=== PATIENT | female | born 1980 | race Caucasian/White ===

== ENCOUNTER 2018-01-09 07:16 | Inpatient (IN) ==
[2018-01-09] MEDS ORDERED: FAMOTIDINE PB 20 MG/50 ML BAG IV ONE (07:22)
[2018-01-09] MEDS ORDERED: CITRIC ACID/SODIUM CITRATE 30ml PO ONE ×2 (07:22→08:56)
[2018-01-09] MEDS ORDERED: NOZIN NASAL SWAB NAS ONE ×3 (07:22→10:35)
[2018-01-09 07:53] VITALS: BMI 40.3
[2018-01-09] MEDS: LR 1,000 ML IV SCH ×4 (08:00→23:34)
--- NOTE | 2018-01-09 08:23 | Anesthesia Preoperative Report ---
Anesthesia Preoperative Record - Date and Time Date: 01/09/18 Preoperative Diagnosis: Repeat c section previous c section Proposed Procedure: repeat c section NPO Since Date: 01/08/18 NPO Since Time: 23:00 Allergies/Adverse Reactions: Allergies Allergy/AdvReac Type Severity Reaction Status Date / Time cefaclor [From Ceclor] Allergy Intermediate Rash Unverified 01/09/18 07:51 cephalexin Allergy Intermediate Rash Unverified 01/09/18 07:51 Sulfa (Sulfonamide Allergy Intermediate Rash Unverified 01/09/18 07:51 Antibiotics) - Vital Signs Vital Signs: Temperature 97.7 F 01/09/18 07:55 Pulse Rate 86 01/09/18 07:55 Respiratory Rate 20 01/09/18 07:55 Blood Pressure 138/88 01/09/18 07:55 Pulse Oximetry 98 01/09/18 07:55 Height and Weight: Height 1.68 m Weight 113.398 kg Body Mass Index 40.3 - Medications Inpatient Medications: Current Medications Isopropyl Alcohol (Nozin Nasal Swab) 1 each STEPHANIE 0600,1400,2200 MICKI Home Medications: Home Medications Medication Instructions Recorded Confirmed Type 1 tab PO DAILY tab 09/25/17 01/09/18 History vitamin,calcium,jcwigzin-ytcf-hogxm acid tablet - Medical History Respiratory: Reports: Asthma (activity induced; has inhaler, mild last inhaler use months ago ) Cardiovascular: Reports: Other (infrequent syncope episodes ) Neuro/Musculoskeletal: Reports: Syncope Other History: Reports: Anesthesia Reactions (N/V), Now - Surgical History HEENT Surgeries: Reports: Ear Surgery ( and left ear), Tonsillectomy ( 2007) Endocrine Surgery/Treatments: Reports: Other (gestational diabetes x 2) GI Surgery/Treatments: Reports: Cholecystectomy (with 1st pg. 2011) Reproductive Surgery/Treatment: Reports: Section (x2) Anesthesia Reactions: Nausea and Vomiting Hx Family Anesthesia Reaction: No - Social History Smoking Status: Never smoker Substance Use Type: does not use Alcohol Intake Frequency: does not drink - Pertinent Findings Laboratory: CBC and BMP 01/09/18 07:47 - Physical Exam Respiratory Exam: Present: lungs clear, bilateral breath sounds equal Cardiovascular Exam: Present: regular rate and rhythm, no murmur - Airway Assessment Mallampati Score: II TMD: 3 Fingerbreadths Neck Extension: good Overall Assessment: no airway concerns - ASA ASA Score: 2 - Plan Regional/Trunk Block: Spinal - Discussion Discussion: Discussed risks/options/alternatives of anesthesia and questions answered. Patient consents. Nursing pain assessment noted. Attestation Statement: Prior to the delivery of any anesthetic medication, I examined the patient, developed the plan, obtained the patient's consent and discussed the risk and benefits of the procedure with the patient/guardian. - Additional Information Seen by Anesthesia: Yes
[2018-01-09] MEDS ORDERED: MORPHINE SULFATE PF 5mg/10ml INJ (Duramorph) ONE (08:49)
[2018-01-09] MEDS ORDERED: FentaNYL 100 MCG/2 ML INJECTION ONE (08:50)
[2018-01-09] MEDS ORDERED: EPHEDRINE 50mg/ml INJECTION ONE (08:50)
[2018-01-09] MEDS ORDERED: ONDANSETRON 4 MG/2 ML INJECTION ONE (08:51)
[2018-01-09] MEDS ORDERED: CLINDAMYCIN PB 900 MG/50 ML BAG IV ONE (08:56)
[2018-01-09] MEDS ORDERED: GENTAMICIN PB 120 MG/100 ML BAG IV ONE (08:56)
[2018-01-09] MEDS ORDERED: OXYTOCIN BOLUS BAG 30 UNIT/500 ML ML IV SCH (09:15)
[2018-01-09] MEDS ORDERED: NALOXONE 2 MG/2 ML INJECTION PFS IVP PRN (09:36)
[2018-01-09] MEDS ORDERED: NALBUPHINE 10 MG/ML INJECTION IVP PRN (09:36)
[2018-01-09] MEDS ORDERED: METOCLOPRAMIDE 10mg/2ml INJECTION IVP PRN (09:36)
[2018-01-09] MEDS ORDERED: ONDANSETRON 4 MG/2 ML INJECTION IVP PRN (09:36)
[2018-01-09] MEDS ORDERED: DiphenhydrAMINE 25 MG CAPSULE PO PRN ×2 (10:11→10:35)
[2018-01-09] MEDS ORDERED: ACETAMINOPHEN 500 MG TABLET PO PRN ×2 (10:11→10:35)
[2018-01-09] MEDS ORDERED: CALCIUM CARBONATE Chewable 500mg TABLET PO PRN ×2 (10:11→10:35)
[2018-01-09] MEDS ORDERED: SIMETHICONE 80 MG CHEWABLE TABLET PO PRN ×2 (10:11→10:35)
[2018-01-09] MEDS ORDERED: HYDROCORTISONE 2.5% CREAM 30gm RECTALLY PRN ×2 (10:11→10:35)
[2018-01-09] MEDS ORDERED: OXYTOCIN DRIP 30 UNIT/500 ML ML IV SCH ×2 (10:15→10:45)
--- NOTE | 2018-01-09 10:22 | Operative Note ---
Operative Note - Date of Operation Date of Operation: 01/09/18 - General : 4 Para: 2 Estimated or Known Gestational Age (weeks): 37 Estimated or Known Gestational Age (days): 6 - Preoperative Diagnosis Previous Section, Gestational Hypertension, Desires sterilization - Postoperative Diagnosis same as preoperative - Procedure Repeat, Low-transverse , Tubal Ligation - Surgeon Surgeon: Shirley Wang MD - Aquatic Centre Manager OB Aquatic Centre Manager: Dov Urban SurgCassidy Assist - Anesthesia Anesthesia Provider: Eduardo Patel CRNA Anesthesia Type: Spinal - Complications Complications: None - Estimated Blood Loss Estimated Blood Loss:: 800 - Findings Findings: viable female, clear fluids, normal uterus, normal adenexa, cephalic - APGARS : 8,9 - Weight [place] Weight (grams): 3416 - Description of Procedure Description of Procedure: The patient was taken to the operating room where anesthesia was obtained. She was placed in the dorsal supine position with a leftward tilt. A Simpson catheter was placed . She was prepared and draped in the normal sterile fashion. Her previous Pfannenstiel incisions were excised and the incision was carried down to the fascia. The fascia was incised in the midline with the scalpel and then extended laterally with the Call scissors. The fascia was elevated, and the underlying rectus muscles were dissected off with the scalpel due to adhesions in this layer. The peritoneum was entered during this process. This was extended superiorly and inferiorly with good visualization of the bladder. The bladder blade was inserted. A bladder flap was created sharply. The lower uterine segment was incised in a transverse fashion [id number] with the scalpel and bluntly extended. The membranes were ruptured. The infant s head was delivered atraumatically. The nose and mouth were suctioned. The cord was clamped and cut. The was handed to Dr. Cottrell who was asked to attend the delivery due to gestational hypertension. The placenta delivered spontaneously. The uterus was exteriorized and cleared of all clots and debris. The uterus was closed with running, locked 0-monocryl. Hemostasis was obtained on the serosal edges with cautery. A Fallopian tube was identified and carried out to the fimbriae. An avascular segment was grasped with a Brandi. The segment was ligated with chromic. Each end of the segment was ligated with chromic. The tube segment was excised, and good hemostasis was noted. The procedure was repeated on the other tube. The uterus was returned to the abdomen. The gutters were cleared of all clots and debris. The uterine incision was inspected one final time and still noted to be hemostatic. The peritoneum was closed with running 2-0 vicryl. Hemostasis was obtained in the rectus muscles with the cautery. The fascia was closed with running 0-vicryl. Hemostasis was obtained in the subcutaneous tissue with the cautery. The deep tissue was closed with running 2-0 chromic. The skin was closed with 4-0 vicryl in a subcuticular manner. Steri-strips were placed. Sponge, sharp, and instrument counts were correct. The patient tolerated the procedure well and was taken to the recovery room in good condition.
[2018-01-09] MEDS ORDERED: SALINE FLUSH 10ml SYRINGE IV PRN (10:35)
[2018-01-09] MEDS ORDERED: D5LR 1,000 ML IV SCH (10:45)
[2018-01-09] MEDS: HYDROCODONE/APAP 5mg/325mg TABLET PO PRN ×3 (12:29→23:46)
[2018-01-09] MEDS: IBUPROFEN 800 MG TABLET PO PRN ×2 (12:29→23:45)
[2018-01-09] MEDS ORDERED: SIMETHICONE 80 MG CHEWABLE TABLET PO SCH (13:00)
[2018-01-09] MEDS: D5LR 1,000 ML IV SCH ×2 (13:09→23:34)
[2018-01-09] MEDS ORDERED: IBUPROFEN 800 MG TABLET PO SCH (16:00)
--- NOTE | 2018-01-09 16:52 | OB/GYN Progress Note ---
OB-PP Progress Note - General POD:: Post Op Check - Subjective Date: 01/09/18 Lochia: Minimal Pain: controlled Voiding: voiding - Objective Vital Signs: Last Vital Signs Temp 97.9 F 01/09/18 15:31 Pulse 75 01/09/18 15:31 Resp 16 01/09/18 15:31 BP 123/63 01/09/18 15:31 Pulse Ox 99 01/09/18 15:31 Urine Output: good General: alert and oriented Laboratory: Laboratory Results - last 24 hr 01/09/18 01/09/18 01/09/18 07:47 07:47 15:24 WBC 9.8 14.3 H D RBC 3.95 L 3.52 L Hgb 12.3 11.0 L Hct 36.0 32.6 L MCV 91.1 92.6 MCH 31.1 31.3 MCHC 34.2 33.7 RDW Std Deviation 43.4 43.0 Plt Count 267 226 MPV 9.9 10.2 Immature Gran % (Auto) 0.3 Neut % (Auto) 73.1 H Lymph % (Auto) 20.7 L [place] % (Auto) 5.1 Eos % (Auto) 0.6 Baso % (Auto) 0.2 Neut # (Auto) 7.1 Lymph # (Auto) 2.0 [place] # (Auto) 0.5 Eos # (Auto) 0.1 Baso # (Auto) 0.0 Abs Immat Gran (auto) 0.03 Blood Type A Positive Antibody Screen Negative - Assessment Assessment: Repeat C/S, Tubal Ligation - Plan Plan: routine care
[2018-01-09] MEDS: NOZIN NASAL SWAB NAS SCH ×4 (19:52→23:48)
[2018-01-09] MEDS: SIMETHICONE 80 MG CHEWABLE TABLET PO SCH ×3 (19:52→23:46)
[2018-01-09] MEDS: MetroNIDAZOLE 500 MG TABLET PO SCH (19:59)
--- NOTE | 2018-01-09 20:46 | Anesthesia Postoperative Note ---
- Date and Time Date: 01/09/18 Time: 20:46 - Status Patient Participated in Evaluation: Patient Participated in Person Vital Signs: Temperature 97.9 F 01/09/18 15:31 Pulse Rate 75 01/09/18 15:31 Respiratory Rate 16 01/09/18 15:31 Blood Pressure 123/63 01/09/18 15:31 Pulse Oximetry 99 01/09/18 15:31 Respiratory Function: Airway Patent Cardiovascular Function: Regular Pulse Mental Status: Alert and Oriented Pain Intensity: 0 Hydration: Taking PO Fluids Complications During Recover: None Apparent - Follow-Up Instructions Instructions: Per Surgeon
[2018-01-10] MEDS: LR 1,000 ML IV SCH (02:52)
[2018-01-10] MEDS: MetroNIDAZOLE 500 MG TABLET PO SCH ×4 (02:55→22:13)
--- NOTE | 2018-01-10 08:17 | OB/GYN Progress Note ---
OB-PP Progress Note - General PPD1 Maternal Group B Strep: Negative Maternal blood type: A+ Maternal Rubella Status: Immune - Subjective Date: 01/10/18 Lochia: Minimal Pain: controlled Voiding: voiding - Objective Vital Signs: Last Vital Signs Temp 98.2 F 01/10/18 04:25 Pulse 74 01/10/18 04:25 Resp 16 01/10/18 04:25 BP 124/68 01/10/18 04:25 Pulse Ox 99 01/10/18 04:25 General: alert and oriented Abdomen: fundus firm, non-tender Incision: normal, clean, no erythema Extremities: non-tender Laboratory: Laboratory Results - last 24 hr 01/09/18 01/09/18 07:47 15:24 WBC 14.3 H D RBC 3.52 L Hgb 11.0 L Hct 32.6 L MCV 92.6 MCH 31.3 MCHC 33.7 RDW Std Deviation 43.0 Plt Count 226 MPV 10.2 Blood Type A Positive Antibody Screen Negative - Assessment Assessment: Repeat C/S, Tubal Ligation, Gestational HTN - Plan Plan: routine care
[2018-01-10] MEDS ORDERED: DOCUSATE CALCIUM 240 MG CAPSULE PO SCH (09:00)
[2018-01-10] MEDS: SIMETHICONE 80 MG CHEWABLE TABLET PO SCH ×4 (09:04→22:12)
[2018-01-10] MEDS: DOCUSATE CALCIUM 240 MG CAPSULE PO SCH (09:04)
[2018-01-10] MEDS: IBUPROFEN 800 MG TABLET PO PRN ×2 (09:05→19:26)
[2018-01-10] MEDS: HYDROCODONE/APAP 5mg/325mg TABLET PO PRN ×4 (09:08→23:48)
[2018-01-10] MEDS: NOZIN NASAL SWAB NAS SCH ×2 (09:09→14:13)
[2018-01-11] MEDS: IBUPROFEN 800 MG TABLET PO PRN (03:53)
[2018-01-11] MEDS: MetroNIDAZOLE 500 MG TABLET PO SCH (07:51)
[2018-01-11] MEDS: DOCUSATE CALCIUM 240 MG CAPSULE PO SCH (07:52)
[2018-01-11] MEDS: SIMETHICONE 80 MG CHEWABLE TABLET PO SCH (07:52)
[2018-01-11] MEDS: NOZIN NASAL SWAB NAS SCH (07:52)
[2018-01-11] MEDS: HYDROCODONE/APAP 5mg/325mg TABLET PO PRN (07:52)
--- NOTE | 2018-01-11 07:57 | OB/GYN Progress Note ---
OB-PP Progress Note - General PPD2 Maternal Group B Strep: Negative Maternal blood type: A+ Maternal Rubella Status: Immune - Subjective Date: 01/11/18 Lochia: Minimal Pain: controlled Voiding: voiding - Objective Vital Signs: Last Vital Signs Temp 98.5 F 01/11/18 03:00 Pulse 73 01/11/18 03:00 Resp 18 01/11/18 03:00 BP 127/71 01/11/18 03:00 Pulse Ox 99 01/11/18 03:00 General: alert and oriented Abdomen: fundus firm, non-tender Incision: normal, no erythema, dry, intact Extremities: non-tender - Assessment Assessment: Repeat C/S, Tubal Ligation, Gestational HTN - Plan Plan: routine care, discharge home, continue PNV
[2018-01-11 09:26] VITALS: BP 131/76; PULSE 75; RESP 16; TEMP 98.3; O2SAT 98
== END 2018-01-11 10:00 | disposition home or self-care (01) | DRG 766 ==
LOC: MC 07:16
PROVIDERS: ADMIT Obstetrics & Gynecology; ATTEND Obstetrics & Gynecology